=== PATIENT | male | born 1970 | race Caucasian/White ===

== ENCOUNTER 2023-11-26 11:57 | Inpatient (IN) | payer BC, SELFPAY ==
[2023-11-26] VITALS (30 sets, daily range): BP systolic 118–149; BP diastolic 72–96; PULSE 47–66; RESP 12–22; TEMP 36.2–36.9; O2SAT 93–100; BMI 28.3
--- NOTE | 2023-11-26 12:16 | PC.NURSE ---
1153 STEMI O/H 1155 ADAM SENT 1156 [address] ON [address] 1200 INTERVENTIONAL CARDIO NOTIFIED
--- NOTE | 2023-11-26 12:17 | PC.NURSE ---
patient received 4mg Morphine, in divided doses, as well as 324mg ASA en route by EMS. patient did received 180mg brilinta when arrived.
--- NOTE | 2023-11-26 12:18 | ED.CHESTPAIN ---
HPI - Chest Pain General Chief Complaint: Chest Pain Stated Complaint: STEMI Time Seen by Provider: 11/26/23 12:03 History of Present Illness HPI narrative: 53 Year old male present to the emergency department for evaluation of onset of left-sided chest pain approximately 30 minutes prior to arrival. Patient reports he has had some worsening chest pain over the last few days but acutely worsened just prior to arrival. EMS was called and EKG in the field did show an inferior IL. This STEMI was called in the field Related Data Home Medications Medication Instructions Recorded Confirmed ibuprofen 200 mg tablet 800 mg PO Q8H PRN Pain 11/26/23 11/26/23 lisinopril 10 mg tablet 20 mg PO HS 11/26/23 11/26/23 tamsulosin 0.4 mg capsule 0.4 mg PO HS 11/26/23 11/26/23 zolpidem 10 mg tablet (Ambien) 10 mg PO HS PRN Insomnia 11/26/23 11/26/23 Allergies Allergy/AdvReac Type Severity Reaction Status Date / Time No Known Allergies Allergy Verified 11/26/23 13:47 Review of Systems Review of Systems: All systems reviewed & are unremarkable except as noted in HPI and below PMFSH Social History Social History Smoking packs per day: 1 Smoking cigarettes per day: 20.0 Years smoked: 15 Smoking pack-years: 15.00 Smoking status: Former smoker Tobacco type: cigarettes Alcohol intake: current Substance use: never Substance use type: does not use Other substance usage details: social drinks Do You Feel Safe in your Home?: Yes Lack of Transportation: No Lack of Food: Never True Current Housing: I Have Housing Concerned About Future Housing: No Difficulty Paying Gas/Electric Bills: No Difficulty Paying for Meds: No Currently Unemployed: No Education: High School Diploma/GED Difficulty w/ Childcare or Family Care: No Spiritual care concerns: No Exam Narrative: APPEARANCE: ill-appearing HEAD: normocephalic, atraumatic. EYES: PERRLA/EOMI, conjunctivae clear. NOSE: Normal no drainage EARS:TMS clear with good light reflex. THROAT: Pharynx clear, no exudate. NECK: Supple. No adenopathy, no masses. RESPIRATORY: Airway patent, respirations nonlabored. Clear to auscultation bilaterally, no rales, rhonchi, wheezing. CARDIOVASCULAR: Regular rate and rhythm without murmurs rubs or gallops. ABDOMINAL: Soft, nontender, nondistended, normal bowel sounds MUSCULOSKELETAL: Moves all extremities. Strength/ROM intact, No edema, No calf tenderness. NEURO: Alert. Cranial nerves II through XII intact. Course Vital Signs Vital signs: Vital Signs Temperature 97.1 F L 11/26/23 12:05 Pulse Rate 47 L 11/26/23 12:05 Respiratory Rate 20 11/26/23 12:05 Blood Pressure 122/79 11/26/23 12:05 Pulse Oximetry 100 11/26/23 12:05 Oxygen Delivery Room Air 11/26/23 12:05 Temperature 98.5 F 11/26/23 20:00 Pulse Rate 54 L 11/26/23 20:40 Respiratory Rate 18 11/26/23 20:40 Blood Pressure 138/82 11/26/23 20:00 Pulse Oximetry 97 11/26/23 20:40 Oxygen Delivery Room Air 11/26/23 20:40 Oxygen Flow Rate 2 11/26/23 12:16 MDM - Chest Pain MDM Narrative Medical decision making narrative: code STEMI was called in the field and patient was met the emergency department by Cardiology. Since patient was going directly to the cleaner laboratory equipment and was decided to hold the heparin bolus patient was treated with Brilinta prior to transfer to the cleaner laboratory equipment. Differential Diagnosis Differential diagnosis: Likely pneumothorax, atypical chest pain and chest pain Lab Data Attestation: I reviewed the patient's lab results. 11/26/23 14:51 11/26/23 14:51 Discharge Plan Discharge Clinical Impression: ST elevation IL (STEMI) Patient Disposition: Still a Patient Condition: Critical
--- NOTE | 2023-11-26 12:52 | ECG_ITS ---
SEE SCANNED COPY FOR CONFIRMED REPORT. MTDD
--- NOTE | 2023-11-26 12:56 | P.HP_ITS ---
H&P: HPI History of Present Illness Date/Time: 11/26/23 12:56 Chief Complaint: chest pain/ST-elevation a Narrative: this is a 53-year-old man who is from out of town he is an [id number] truck shop mechanic who began to experience significant chest pain about 30 minutes prior to arrival here. 911 was called and ECG in the field demonstrates acute inferior wall ST-elevation NM. he has no previous history of heart disease. He describes a prior history of hypertension and no other significant medical problems. Review of Systems Review of Systems: ROS unobtainable: Yes unobtainable due to medical condition Meds Home Medications and Allergies Allergies Allergy/AdvReac Type Severity Reaction Status Date / Time No Known Allergies Allergy Verified 11/26/23 12:17 Vital Signs Vital Signs - 24 hr 11/26/23 12:05 11/26/23 12:16 Temperature 36.2 C L Pulse Rate 47 L Respiratory Rate 20 Blood Pressure 122/79 Pulse Oximetry 100 99 Oxygen Delivery Room Air Nasal Cannula Oxygen Flow Rate 2 Exam Const: General: comfortable and no acute distress Other: Remarkably calm appearing 53-year-old man with moderate central substernal chest pain otherwise in no distress HENMT: Mouth: Yes moist mucous membranes Eyes: Sclera: sclerae normal Neck: Neck: supple and no JVD Resp: Effort & Inspection: normal respiratory effort Auscultation: clear to auscultation bilaterally Cardio: Rate: regular rate and bradycardic Rhythm: regular rhythm Other: no murmur no gallop GI: GI Palp: Yes Soft to palpation Auscultation: normal bowel sounds Skin: General skin exam: normal color Neuro: Other: alert and oriented x3 Extrem: Other: normal pulses, no edema Assessment and Plan Assessment and plan (1) ST elevation NM (STEMI): Code(s): I21.3 - ST elevation (STEMI) myocardial infarction of unspecified site Status: Acute Plan this is a 53-year-old man prior history of hypertension no other significant medical problems who presents with chest pain acute inferior ST-elevation mi without onset of symptoms about 30 minutes prior to arrival. He is being prepared to go to the laboratory immunologist for emergency angiography and revascularization. Aspirin and 180 mg of Brilinta are being given in the emergency department Abdi Anne MD [facility]
--- NOTE | 2023-11-26 12:59 | WPDCARDPROC ---
Cardiac Cath Procedure Note Date of procedure:: 11/26/23 Performing physician:: Abdi Anne MD Indication:: acute inferior ST-elevation DC Brief clinical history:: this is a 53-year-old man without prior cardiac history presenting with 30 minutes of chest pain with inferior ST elevation by ECG Procedure Procedure performed:: emergency coronary angiography left ventriculography emergency PCI(DIANNE) to the distal right coronary artery Sedation/Medication given:: no sedation Access site:: right femoral artery Estimated blood loss:: 25 cc Procedure note:: patient was brought to cardiac catheterization lab in emergency setting described above. The right femoral triangle was prepared and draped in the normal fashion. Anesthesia was given with 50 cc of lidocaine infiltrated locally. Using the modified Seldinger technique the right femoral artery was punctured and a 6 Micronesian vascular sheath was placed. After this I used a 5 Micronesian FL4 catheter to engage inject the left coronary artery in multiple projections. The right coronary artery was then engaged and injected using a 6 Micronesian JR4 guiding catheter. Following this PCI of the occluded right coronary artery was recommended carried out deep as detailed below. Prior to PCI patient was anticoagulated with a bolus and infusion of Angiomax. After completion of the intervention the with guidewire and guiding catheter were removed and a 5 Micronesian angled pigtail catheter was used to demonstrate left-sided headaches and to inject LV g in the 30 degree WRAY projection. After this the procedure was terminated. The patient was taken to the holding area with the sheath sutured into position for post mi/ PCI recovery. Procedure was well tolerated and uncomplicated. Findings:: Hemodynamics: Central aortic pressure was 96 over 50 left ventricle 96 over poor end-diastolic pressure 14 there is no gradient on pullback across the aortic valve. Left ventricle: The LV is normal in size all segments contract appropriately the global ejection fraction visually estimated to be 55%. The left main coronary artery is widely patent the left anterior descending is a medium caliber artery extending down to the apex there are mild luminal irregularities in the LAD but no flow-limiting stenosis is seen. Circumflex is a medium caliber artery giving rise to the marginal branches. The circumflex system also has diffuse mild atherosclerotic irregularities. There was approximately 70% stenosis after the 2nd obtuse marginal branch takes its origin. There was KRISS 3 flow in the circumflex right coronary artery very large in caliber and dominant to the posterior circulation. There is 100% occlusion of the 3rd portion of the right coronary artery angiographically has a typical appearance of an abrupt thrombotic occlusion. Intervention: Right coronary artery as stated above was engaged using a 6 Micronesian JR4 guiding catheter. A 0.014 BMW coronary guidewire was used to traverse the occluded segment and was passed easily into the distal RCA. The lesion was then pre-dilated using a 3 x 20 Panterra PTCA balloon. After this inflation there was minimal residual stenosis the artery and KRISS 3 flow into the RPDA and RPL branches. Following this I stented the target lesion using a 3.5 x 18 mm Orsiro drug-eluting stent deployed at 10 atmospheres for 30 seconds which resulted in an excellent angiographic result with no residual stenosis disruption dissection or distal embolization and mandaeism of KRISS 3 flow into the RCA. The patient's ST segments normalized following this intervention. Conclusion:: 1. Right coronary dominant circulation with acute inferior wall ST-elevation DC with 100% abrupt thrombotic occlusion of the 3rd portion of the RCA 2. mild diffuse atherosclerosis in the left coronary none which is currently flow-limiting in appearance 3. preserved left ventricular systolic function
--- NOTE | 2023-11-26 13:31 | WPDCNINT ---
Assessment and Plan Assessment and plan (1) ST elevation MS (STEMI): Qualifiers: Involved coronary artery: right coronary artery Qualified Code(s): I21.11 - ST elevation (STEMI) myocardial infarction involving right coronary artery Code(s): I21.3 - ST elevation (STEMI) myocardial infarction of unspecified site Status: Acute Assessment and Plan: Patient presented the ED with worsening chest pain that is been ongoing for the last 3 days, on the day of admission patient had excruciating chest pain radiating to both arms feeling numbness in both arms, shortness of breath along with diaphoresis. Upon arrival of the EMS, EKG in diffuse showed acute inferior ST-elevation myocardial infarction. -patient was taken to the laboratory technologist where he was found to have 100% occlusion of the distal RCA, PTCA/PCI status post DIANNE x1 to distal RCA with good angiographic outcome. LV gram showed EF of 55% -cardiology following the patient closely -continue aspirin, Brilinta, rosuvastatin -patient currently bradycardic, will continue to monitor (2) Essential hypertension: Code(s): I10 - Essential (primary) hypertension Status: Acute Assessment and Plan: Patient has a history of essential hypertension, on lisinopril at home, will hold for now - (3) BPH (benign prostatic hyperplasia): Qualifiers: Lower urinary tract symptom detail: unspecified Lower urinary tract symptom presence: symptoms present Qualified Code(s): N40.1 - Benign prostatic hyperplasia with lower urinary tract symptoms Code(s): N40.0 - Benign prostatic hyperplasia without lower urinary tract symptoms Status: Acute Assessment and Plan: On Flomax Plan DVT prophylaxis: Status post cardiac catheterization Stress ulcer prophylaxis: Not indicated Nutrition: Heart healthy diet Code Status: Full code Critical Care Time Spent: 42 minutes Due to a high probability of clinically significant, life threatening deterioration, the patient required my highest level of preparedness to intervene emergently and I personally spent this critical care time directly and personally managing the patient. This critical care time included obtaining a history; examining the patient; pulse oximetry; ordering and review of studies; arranging urgent treatment with development of a management plan; evaluation of patient's response to treatment; frequent reassessment; and discussions with other providers. It was exclusive of separately billable procedures and treating other patients and teaching time. Please see Assessment and Plan section and the rest of the note for further information on patient assessment and treatment This dictation may have been done utilizing a voice recognition system. Attempts have been made to correct errors. However, there may be uncorrected grammatical, spelling, and recognitions errors present. 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 According the records and patient pain he complained of chest pain for few days, but today his chest pain worsened with feeling of numbness in both arms, diaphoresis and shortness of breath. Denies any nausea vomiting. Patient was taken to the cardiac laboratory technologist emergently upon arrival to the ER. PTCA/CHIEF NURSE with 100% occlusion distal RCA status post DIANNE x1 to distal RCA. LV gram showed an EF of 55%. Discussed with cardiology, in the laboratory technologist, initially patient's blood press
[2023-11-26] MEDS: SODIUM CHLORIDE 0.9% IV 1,000 ML 125 ML IV CONT (13:41)
--- NOTE | 2023-11-26 13:54 | ADMGEN ---
This patient, Thad Anderson, was admitted to Intensive Care Unit-2. Patient/family oriented to hospital policies and general routines including ID bracelet, bed and alarms, visiting hours, pain management, procedures, bathroom and other care routines, personal items, smoking policy, room service/diet, and visiting hours. Information on how to activate the Rapid Response Team has been discussed. Patient/Family are encouraged to report perceived risks to care and to ask questions if they do not understand what they are told or what they should do.
[2023-11-26 15:02] LABS: Basophils Absolute Auto 0.1 K/mm3 (0.0-0.1); Basophils Percent Auto 0.4 % (0.2-1.2); Eosinophils Percent Auto 0.3 % (0-4.4); Hemoglobin 14.4 g/dL (14.0-18.0); Immature Granulocyte Absolute 0.09 K/mm3 (0.00-0.031); Immature Granulocyte Percent A 0.7 % (0-0.5); Lymphocytes Absolute Auto 0.87 K/mm3 (0.9-3.2); Lymphocytes Percent Auto 6.6 % (18.3-44.2); Mean Corpuscular HGB Conc 33.5 g/dl (32-36); Mean Corpuscular Hemoglobin 29.5 pg (26-34); Mean Corpuscular Volume 88.1 fl (80-100); Mean Platelet Volume 10.7 fl (7.4-10.4); Monocytes Absolute Auto 0.6 K/mm3 (0.1-0.6); Monocytes Percent Auto 4.7 % (2.6-8.5); Neutrophils Absolute Auto 11.5 K/mm3 (1.3-6.7); Neutrophils Percent Auto 87.3 % (45.5-73.1); Platelet Count Result 247 k/mm3 (150-375); Red Blood Count 4.88 M/mm3 (4.6-6.20); Red Cell Distribution Width 13.4 % (11.5-14.5); White Blood Count 13.1 K/mm3 (4.5-10.0)
[2023-11-26 15:10] LABS: Anion Gap 6 mmol/L (4-12); Blood Urea Nitrogen 12 mg/dL (9-20); Calcium 8.7 mg/dL (8.4-10.2); Carbon Dioxide 27 mmol/L (22-30); Chloride 105 mmol/L (98-107); Cholesterol 209 mg/dL (0-200); Estimated CRCL calculation 65 ml/min; Estimated Glomerular Filt Rate > 60; Glucose 117 mg/dL (65-110); HDL Direct 38 mg/dL; INR 1.3; Potassium 3.7 mmol/L (3.4-5.0); Prothrombin Time 16.9 Seconds (11.1-14.7); Sodium 138 mmol/L (137-145); Triglycerides 85 mg/dL (<150)
[2023-11-26 15:11] LABS: Alanine Aminotransferase 20 U/L (6-50); Albumin Level 4.3 g/dL (3.5-5.1); Alkaline Phosphatase 68 U/L (38-126); Anion Gap 7 mmol/L (4-12); Aspartate Amino Transferase 64 U/L (17-59); Bilirubin,Total 0.7 mg/dL (0.2-1.3); Blood Urea Nitrogen 13 mg/dL (9-20); Calcium 8.9 mg/dL (8.4-10.2); Carbon Dioxide 27 mmol/L (22-30); Chloride 106 mmol/L (98-107); Estimated CRCL calculation 65 ml/min; Estimated Glomerular Filt Rate > 60; Glucose 122 mg/dL (65-110); Partial Thromboplastin Time 47.8 Seconds (22.3-36.8); Potassium 3.7 mmol/L (3.4-5.0); Sodium 140 mmol/L (137-145)
[2023-11-26 15:21] LABS: LDL Cholesterol Direct 153 mg/dL
[2023-11-26 15:29] LABS: NT Pro B Type Natriuretic Pept < 20 pg/mL (19.9-100)
--- NOTE | 2023-11-26 18:47 | ECG_ITS ---
SEE SCANNED COPY FOR CONFIRMED REPORT. MTDD
[2023-11-26 18:50] LABS: MRSA (PCR) NOT DETECTED (NOT DETECTE)
[2023-11-26] MEDS: TICAGRELOR 90 MG TABLET PO (20:47)
[2023-11-27] VITALS (14 sets, daily range): BP systolic 125–145; BP diastolic 76–92; PULSE 47–67; RESP 14–19; TEMP 36.4–37; O2SAT 95–100
[2023-11-27 04:15] LABS: Basophils Percent Auto 0.2 % (0.2-1.2); Eosinophils Absolute Auto 0.1 K/mm3 (0-0.3); Eosinophils Percent Auto 0.9 % (0-4.4); Hematocrit 39.6 % (42.0-52.0); Hemoglobin 13.5 g/dL (14.0-18.0); Immature Granulocyte Absolute 0.03 K/mm3 (0.00-0.031); Immature Granulocyte Percent A 0.2 % (0-0.5); Lymphocytes Percent Auto 12.4 % (18.3-44.2); Mean Corpuscular HGB Conc 34.1 g/dl (32-36); Mean Corpuscular Hemoglobin 29.9 pg (26-34); Mean Corpuscular Volume 87.6 fl (80-100); Mean Platelet Volume 10.5 fl (7.4-10.4); Monocytes Absolute Auto 0.8 K/mm3 (0.1-0.6); Monocytes Percent Auto 6.2 % (2.6-8.5); Neutrophils Absolute Auto 9.7 K/mm3 (1.3-6.7); Neutrophils Percent Auto 80.1 % (45.5-73.1); Platelet Count Result 257 k/mm3 (150-375); Red Blood Count 4.52 M/mm3 (4.6-6.20); Red Cell Distribution Width 13.6 % (11.5-14.5); White Blood Count 12.1 K/mm3 (4.5-10.0)
[2023-11-27 04:27] LABS: Alanine Aminotransferase 29 U/L (6-50); Albumin Level 3.8 g/dL (3.5-5.1); Alkaline Phosphatase 62 U/L (38-126); Anion Gap 6 mmol/L (4-12); Aspartate Amino Transferase 135 U/L (17-59); Bilirubin,Total 0.6 mg/dL (0.2-1.3); Blood Urea Nitrogen 10 mg/dL (9-20); Calcium 8.7 mg/dL (8.4-10.2); Carbon Dioxide 23 mmol/L (22-30); Chloride 107 mmol/L (98-107); Estimated CRCL calculation 71 ml/min; Estimated Glomerular Filt Rate > 60; Glucose 146 mg/dL (65-110); Magnesium 1.9 mg/dL (1.6-2.3); Phosphorus 3.4 mg/dL (2.5-4.5); Potassium 3.3 mmol/L (3.4-5.0); Sodium 136 mmol/L (137-145)
[2023-11-27] MEDS: TICAGRELOR 90 MG TABLET PO ×2 (08:01→21:40)
[2023-11-27] MEDS: ASPIRIN 81 MG CHEWABLE TABLET PO (08:01)
[2023-11-27] MEDS: ROSUVASTATIN 10 MG TABLET 20 MG PO (08:02)
[2023-11-27] MEDS: POTASSIUM CHLORIDE 20 MEQ ER TABLET 40 MEQ PO (08:02)
--- NOTE | 2023-11-27 08:42 | PM.PNCARD ---
Progress Note: A&P Assessment and Plan (1) ST elevation VT (STEMI): Code(s): I21.3 - ST elevation (STEMI) myocardial infarction of unspecified site Status: Acute Plan 53-year-old man with newly diagnosed coronary disease. Yesterday presenting with acute inferior wall ST-elevation VT undergoing successful PCI of the total occlusion of the large dominant RCA. He is doing well today. Will add a low dose of losartan back to his medical regimen. Heart rate tends to run the 50-60 range for now I am not going to start beta-nishant therapy for that reason. Importance of strict adherence to dual anti-platelet therapy was discussed in detail with the patient and his . He can move to IMU today. Abdi Anne MD [facility] Subjective Date/time seen: 11/27/23 08:42 Interval history: Follow-up visit in this 53-year-old man with: Newly diagnosed coronary artery disease with acute inferior ST-elevation VT on presentation. Patient underwent emergent successful PCI with drug-eluting stent to the distal right coronary artery with excellent angiographic result. Has mild diffuse left coronary disease at this time not flow-limiting. Left ventricular systolic function by LV g was well preserved. He is asymptomatic this morning feeling well and is appreciative of the care that he received yesterday. Exam Const: General: comfortable and no acute distress HENMT: Mouth: Yes moist mucous membranes Eyes: Sclera: sclerae normal Neck: Neck: supple and no JVD Resp: Effort & Inspection: normal respiratory effort Auscultation: clear to auscultation bilaterally Cardio: Rate: regular rate Rhythm: regular rhythm Other: No murmur no gallop GI: GI Palp: Yes Soft to palpation Auscultation: normal bowel sounds Skin: General skin exam: normal color Neuro: Other: Alert and oriented x3 Objective Data Vital Signs Vital Signs: Vital Signs - 24 hr 11/26/23 12:05 11/26/23 12:16 11/26/23 15:25 Temperature 36.2 C L Pulse Rate 47 L 54 L Pulse Rate [Right Pedal (Dorsalis Pedis) Palpation] Respiratory Rate 20 19 Blood Pressure 122/79 130/82 Pulse Oximetry 100 99 97 Oxygen Delivery Room Air Nasal Cannula Oxygen Flow Rate 2 11/26/23 15:50 11/26/23 15:30 11/26/23 15:35 Temperature Pulse Rate 60 50 L 56 L Pulse Rate [Right Pedal (Dorsalis Pedis) Palpation] Respiratory Rate 22 H 16 22 H Blood Pressure 132/78 130/82 118/81 Pulse Oximetry 97 98 97 Oxygen Delivery Oxygen Flow Rate 11/26/23 15:40 11/26/23 15:45 11/26/23 15:55 Temperature Pulse Rate 53 L 56 L 53 L Pulse Rate [Right Pedal (Dorsalis Pedis) Palpation] Respiratory Rate 16 14 18 Blood Pressure 127/80 130/85 129/81 Pulse Oximetry 98 97 97 Oxygen Delivery Oxygen Flow Rate 11/26/23 13:05 11/26/23 13:15 11/26/23 13:30 Temperature Pulse Rate 51 L 60 63 Pulse Rate [Right Pedal (Dorsalis Pedis) Palpation] Respiratory Rate 17 16 18 Blood Pressure 128/87 133/87 141/86 H Pulse Oximetry 98 97 93 Oxygen Delivery Oxygen Flow Rate 11/26/23 13:45 11/26/23 14:00 11/26/23 14:15 Temperature Pulse Rate 57 L 56 L 55 L Pulse Rate [Right Pedal (Dorsalis Pedis) Palpation] Respiratory Rate 12 16 12 Blood Pressure 127/90 129/88 127/83 Pulse Oximetry 97 97 96 Oxygen Delivery Oxygen Flow Rate 11/26/23 14:30 11/26/23 14:45 11/26/23 15:00 Temperature Pulse Rate 56 L 63 58 L Pulse Rate [Right Pedal (Dorsalis Pedis) Palpation] Respiratory Rate 17 18 15 Blood Pressure 131/85 144/96 H 133/88 Pulse Oximetry 96 100 98 Oxygen Delivery Oxygen Flow Rate 11/26/23 15:15 11/26/23 14:00 11/26/23 16:00 Temperature Pulse Rate 55 L 56 L 50 L Pulse Rate [Right Pedal (Dorsalis Pedis) Palpation] Respiratory Rate 12 Blood Pressure 138/88 Pulse Oximetry 96 Oxygen Delivery Oxygen Flow Rate 11/26/23 16:00 11/26/23 16:00 11/26/23 16:15 Temperature Pulse Rate
--- NOTE | 2023-11-27 09:16 | WPDINTPN ---
Progress Note: A&P Assessment and Plan (1) ST elevation UT (STEMI): Code(s): I21.3 - ST elevation (STEMI) myocardial infarction of unspecified site Status: Acute Assessment and Plan: Patient presented the ED with worsening chest pain that is been ongoing for the last 3 days, on the day of admission patient had excruciating chest pain radiating to both arms feeling numbness in both arms, shortness of breath along with diaphoresis. Upon arrival of the EMS, EKG in diffuse showed acute inferior ST-elevation myocardial infarction. -patient was taken to the solder making laborer where he was found to have 100% occlusion of the distal RCA, PTCA/PCI status post DIANNE x1 to distal RCA with good angiographic outcome. LV gram showed EF of 55% -cardiology following the patient closely -continue aspirin, Brilinta, rosuvastatin -patient currently bradycardic, will continue to monitor -cardiology started losartan, -patient is bradycardic so will hold beta-nishant for now (2) Essential hypertension: Code(s): I10 - Essential (primary) hypertension Status: Acute Assessment and Plan: Started on losartan (3) BPH (benign prostatic hyperplasia): Qualifiers: Lower urinary tract symptom presence: symptoms present Lower urinary tract symptom detail: unspecified Qualified Code(s): N40.1 - Benign prostatic hyperplasia with lower urinary tract symptoms Code(s): N40.0 - Benign prostatic hyperplasia without lower urinary tract symptoms Status: Acute Assessment and Plan: On Flomax at home will restart if okay with Cardiology Plan DVT prophylaxis: Status post cardiac catheterization Stress ulcer prophylaxis: Not indicated Nutrition: Heart healthy diet Code Status: Full code Critical Care Time Spent: 31 minutes Discussed with Cardiology, will transfer patient out of the ICU Due to a high probability of clinically significant, life threatening deterioration, the patient required my highest level of preparedness to intervene emergently and I personally spent this critical care time directly and personally managing the patient. This critical care time included obtaining a history; examining the patient; pulse oximetry; ordering and review of studies; arranging urgent treatment with development of a management plan; evaluation of patient's response to treatment; frequent reassessment; and discussions with other providers. It was exclusive of separately billable procedures and treating other patients and teaching time. Please see Assessment and Plan section and the rest of the note for further information on patient assessment and treatment This dictation may have been done utilizing a voice recognition system. Attempts have been made to correct errors. However, there may be uncorrected grammatical, spelling, and recognitions errors present. Subjective Date/time seen: 11/27/23 09:16 Interval history: Reason for consult: Acute inferior ST-elevation [place] status post PTCA/PCI to distal RCA, LVEF 55% 11/27/2023: Patient seen and examined the ICU, is awake, alert, oriented x3, denies any chest pain, shortness of breath, abdominal pain, nausea vomiting. No issues overnight to hemodynamically stable, slightly bradycardic in the 50s. Adequate urine output, afebrile Review of Systems Review of Systems: All systems reviewed & are unremarkable except as noted in HPI and below Exam Narrative: General: Pleasant patient in no acute distress HEENT:? Pupils equal reactive, sclera is clear, moist oral mucosa Neck:? Supple Respiratory:? Clear to auscultation bilaterally, no wheezing, adequate air entry Cardiac:? S1-S2 normal, bradycardic Abdomen:? Soft, nontender, nondistended, hypoactive bowel sounds Extremities:? Right groin site with sheath in place, no signs of ecchymosis or hematoma, palpable pedal pulses Neuro:? Patient is awake, alert, oriented, answers to questions appropriately and follows simple commands in a
[2023-11-27] MEDS: LOSARTAN POTASSIUM 25 MG TABLET PO (09:24)
[2023-11-28] VITALS: PULSE 50
[2023-11-28 00:17] VITALS: BP 135/65
[2023-11-28 04:00] VITALS: PULSE 65
[2023-11-28 04:21] VITALS: BP 121/77; PULSE 60; RESP 18; TEMP 36.4; O2SAT 96
[2023-11-28 08:00] VITALS: BP 120/80; PULSE 80; RESP 16; TEMP 36.1; O2SAT 98
[2023-11-28] MEDS: TICAGRELOR 90 MG TABLET PO (08:54)
[2023-11-28] MEDS: ASPIRIN 81 MG CHEWABLE TABLET PO (08:54)
[2023-11-28] MEDS: ROSUVASTATIN 10 MG TABLET 20 MG PO (08:54)
[2023-11-28] MEDS: LOSARTAN POTASSIUM 25 MG TABLET PO (08:55)
[2023-11-28 10:00] VITALS: PULSE 67
--- NOTE | 2023-11-28 10:42 | PM.DS ---
DS: Admitting Diagnosis Discharge Date 11/28/2023 Admitting Diagnosis STEMI DS: Discharge Diagnosis Discharge Diagnosis (1) ST elevation [facility] (STEMI): Code(s): I21.3 - ST elevation (STEMI) myocardial infarction of unspecified site Status: Acute Assessment and Plan: Newly diagnosed CAD presenting with acute inferior wall STEMI now s/p successful PCI to the RCA with DIANNE x 1. Continue DAPT with ASA indefinitely, Brilinta for one year. Continue high intensity statin Continue losartan No beta nishant at this tie due to mild bradycardia Aggressive risk factor modification He is from out of town but has already contacted his PCP to get a referral to a local medical center director for him to follow up with [place] for discharge from the hospital today. 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 He was taken emergently to the cardiac laborer pole crew where he was found to have a 100% occluded RCA. He underwent successful PCI of that vessel and had no complications. He has recovered as expected and is stable and appropriate for discharge home today. Time Spent with Patient Time attestation: Total time spent providing and/or coordinating discharge services: Exam Const: General: comfortable and no acute distress Other: HENMT: Mouth: Yes moist mucous membranes Eyes: Sclera: sclerae normal Neck: Neck: supple and no JVD Resp: Effort & Inspection: normal respiratory effort Auscultation: clear to auscultation bilaterally Cardio: Rate: regular rate and bradycardic Rhythm: regular rhythm Other: No murmur no gallop GI: Auscultation: normal bowel sounds Skin: General skin exam: normal color Other: right groin arterial access site free from bleeding, hematoma Neuro: Other: Alert and oriented x3 Extrem: Other: normal pulses, no edema Discharge Plan Discharge Attending physician on discharge: Samir Franklin Discharging Clinician: Michelle Valle Patient Disposition: Home, Self-Care Activity: may shower and other - see discharge instructions Diet: heart healthy Wound Care Instructions: other - see discharge instructions Discharge Instructions: [facility] [address] [place] [address] DISCHARGE INSTRUCTIONS - POST PCI Activity 1. No driving until 11/29/2023. 2. No lifting, pushing or pulling more than 10 pounds for 1 week. 3. No strenuous exercise or activity (including sexual activity) until you are released to do so. 4. May shower but no tub baths or swimming pool for 1 week. Avoid commercial hot tubs. . Medications DO NOT STOP YOUR MEDICATIONS ONLY YOUR TRAFFIC EXPERT CAN STOP THE FOLLOWING MEDICATIONS - PLEASE CALL THE OFFICE WITH QUESTIONS. *Aspirin *Ticagrelor (Brilinta) *Atorvastatin *Losartan Important Reminders 1. Keep your stent card in your wallet at all times 2. Follow a heart healthy diet paying extra attention to cholesterol and fats. 3. Stay hydrated. 4. If you have chest pain unrelieved by rest or nitroglycerin (if prescribed) call 911 immediately. 5. If you miss one dose of Brilinta (if prescribed) take a tablet at the next time due. If
== END 2023-11-28 11:06 | disposition home or self-care (01) | DRG 322 ==
LOC: ANHED 13:14 → ANHICU 16:05 → ANHIMU 11-27 11:53 → ANHICU 11-29 13:28 → ANHIMU 11-29 13:28
PROVIDERS: Internal Medicine; Admitting Provider Specialist; Emergency Provider Emergency Medicine; Visit Provider Internal Medicine
PROC: 4A023N7 Measurement of Cardiac Sampling and Pressure, Left Heart, Percutaneous Approach (ICD-10-PCS; CPT 93452; principal; 2023-11-26 12:30)
PROC: 027034Z Dilation of Coronary Artery, One Artery with Drug-eluting Intraluminal Device, Percutaneous Approach (ICD-10-PCS; 2023-11-26 12:30)
DX: I21.11 ST elevation (STEMI) myocardial infarction involving right coronary artery (principal); I25.10 Atherosclerotic heart disease of native coronary artery without angina pectoris; N40.0 Benign prostatic hyperplasia without lower urinary tract symptoms; Z87.891 Personal history of nicotine dependence
CPT/HCPCS: 36415; 80048; 80053; 80061; 83735; 83880; 84100; 84484; 85025; 85610; 85730; 87641; 93005; 93458; 99285; A9270; C1725; C1769; C1874; C1887; C1894; C9606; J0461; J0583; J1644; J2371; J7030; J7040